=== PATIENT | male | born 1960 | race Caucasian/White ===

== ENCOUNTER 2018-06-02 08:29 | Emergency (ER) | payer OTHER ==
[2018-06-02 08:42] VITALS: RESP 18; TEMP 97.7
--- NOTE | 2018-06-02 09:03 | ED PDOC ---
Arrival/HPI - General Chief Complaint: Male Genitourinary Time Seen by Provider: 06/02/18 08:47 Historian: Patient - History of Present Illness Narrative History of Present Illness (Text): 06/02/18 09:10 57 year old male, with no significant past medical history, presents to the emergency department with burning sensation while urinating, since 2 days. Patient is hypertensive, but has no PMD, and was not previously diagnosed. Patient states he feels his bladder is not emptying completely during urination. Patient denies any fever chills, headache, dizziness, chest pain, shortness of breath, cough, abdominal pain, nausea, vomiting, diarrhea, back pain, neck pain, hematuria, or any other complaint. Time/Duration: < week (2 days) Symptom Onset: Gradual Symptom Course: Unchanged Quality: Burning Activities at Onset: Light Context: Home Past Medical History - Provider Review Nursing Documentation Reviewed: Yes - Psychiatric Hx Substance Use: No - Anesthesia Hx Anesthesia: No Hx Anesthesia Reactions: No Hx Malignant Hyperthermia: No Family/Social History - Physician Review Nursing Documentation Reviewed: Yes Family/Social History: No Known Family HX Smoking Status: Never Smoked Hx Alcohol Use: No Hx Substance Use: No Allergies/Home Meds Allergies/Adverse Reactions: Allergies No Known Allergies Allergy (Verified 06/02/18 08:39) Review of Systems - Physician Review All systems were reviewed & negative as marked: Yes - Review of Systems Constitutional: Normal. absent: Fevers, Night Sweats Eyes: Normal ENT: Normal Respiratory: Normal. absent: SOB, Cough Cardiovascular: Normal. absent: Chest Pain Gastrointestinal: Normal. absent: Abdominal Pain, Diarrhea, Nausea, Vomiting Genitourinary Male: Dysuria, Urinary Output Changes (feels bladder is not completely emptying). absent: Hematuria Musculoskeletal: Normal. absent: Back Pain, Neck Pain Skin: Normal Neurological: Normal. absent: Headache, Dizziness Endocrine: Normal Hemo/Lymphatic: Normal Psychiatric: Normal Physical Exam - Physical Exam Narrative Physical Exam (Text): 06/02/18 09:03 Gen: VS reviewed, alert, well developed, well nourished, nontoxic, mild distress. ENT: normal pharynx. Eye: EOMI, PERRL. Neck: no JVD, supple, no adenopathy. CV: regular rate, regular rhythm, no rubs, no murmur, no gallops, S1, S2, pulses equal and strong. Pulm: no distress, clear to auscultation, no wheeze, no rhonchi, breath sounds equal, no rales. Abd: soft, nontender, no guarding, no rebound, no rigidity, normal bowel sounds. Ext: no edema. Skin: good color, no rash, no cyanosis. Psych: responds appropriately to questions, normal affect. Neuro: oriented x 3, CN2-12 intact grossly, motor intact, sensation intact. Vital Signs Reviewed: Yes Vital Signs Temp Pulse Resp BP Pulse Ox 06/02/18 08:39 97.7 F 67 18 170/103 H 98 Temperature: Afebrile Blood Pressure: Hypertensive Pulse: Regular Respiratory Rate: Normal Appearance: Positive for: Well-Appearing, Non-Toxic, Comfortable Pain Distress: None Mental Status: Positive for: Alert and Oriented X 3 Medical Decision Making ED Course and Treatment: 06/02/18 09:15 Impression: 57 year old male presents to the emergency department for burning sensation while urinating. Plan: -- Labs -- Urinalysis -- Reassess and disposition Prior Visits: Notes and results from previous visits were reviewed. Progress Notes: 06/02/18 10:38 patient seen for urinary hesitancy, presumed enlarged prostate. patient was found to be severely hypertensive without headache or chest pain. patient informed and agreeable to empirically start medication to improve urine flow and to follow up with urologist. patient also agreeable to start antihypertensive medication and to see a primary care doctor for follow up. patient is aware of pending urine culture. - Lab Interpretations Lab Results: 06/02/18 09:35 06/02/18 09:35 Lab Results 06/02/18 09:35: Sodium 140, Potassium 5.0, Chloride 103, Carbon Dioxide 30, Anion Gap 13, BUN 17, Creatinine 0.9, Est GFR ( Amer) > 60, Est GFR (Non- Af Amer) > 60, Random Glucose 113 H, Calcium 9.3 06/02/18 09:35: WBC 6.1, RBC 4.98, Hgb 15.3, Hct 42.9, MCV 86.1, MCH 30.7, MCHC 35.7, RDW 13.2, Plt Count 188, MPV 10.1, Gran % 56.4, Lymph % (Auto) 29.0, [place] % (Auto) 8.7 H, Eos % (Auto) 5.4 H, Baso % (Auto) 0.5, Gran # 3.44, Lymph # ( Auto) 1.8, [place] # (Auto) 0.5, Eos # (Auto) 0.3, Baso # (Auto) 0.03 06/02/18 09:00: Urine Color Light yellow, Urine Appearance Clear, Urine pH 6.5, Ur Specific [place] <= 1.005, Urine Protein Negative, Urine Glucose (UA) Negative, Urine Ketones Negative, Urine Blood Small H, Urine Nitrate Negative, Urine Bilirubin Negative, Urine Urobilinogen 0.2, Ur Leukocyte Esterase Negative , Urine RBC 0 - 2, Urine WBC 1 - 3, Ur Epithelial Cells 1 - 3, Urine Bacteria Few - Scribe Statement The provider has reviewed the documentation as recorded by the Scribe Clint Dow All medical record entries made by the Scribe were at my direction and personally dictated by me. I have reviewed the chart and agree that the record accurately reflects my personal performance of the history, physical exam, medical decision making, and the department course for this patient. I have also personally directed, reviewed, and agree with the discharge instructions and disposition. Disposition/Present on Arrival - Present on Arrival Any Indicators Present on Arrival: No History of DVT/PE: No History of Uncontrolled Diabetes: No Urinary Catheter: No History of Decub. Ulcer: No History Surgical Site Infection Following: None - Disposition Have Diagnosis and Disposition been Completed?: Yes Diagnosis: Urinary hesitancy, Hypertension Disposition: HOME/ ROUTINE Disposition Time: 10:40 Patient Plan: Discharge Condition: STABLE Discharge Instructions (ExitCare): High Blood Pressure in Adults, Urinary Retention Print Language: SOMALI Additional Instructions: Follow up with a primary care doctor for further management of your high blood pressure. Follow up with a urologist for follow up with difficulty urinating-you may have an enlarged prostate and you should see a specialist as soon as possible. ARABELLA WANG, thank you for letting us take care of you today. Your provider was Dr. Dmitriy Ramirez and you were treated for urinary hesitancy and high blood pressure. The emergency medical care you received today was directed at your acute symptoms. If you were prescribed any medication, please fill it and take as directed. It may take several days for your symptoms to resolve. Return to the Emergency Department if your symptoms worsen, do not improve, or if you have any other problems. Please contact your doctor or call one of the physicians/clinics you have been referred to that are listed on the Patient Visit Information form that is included in your discharge packet. Bring any paperwork you were given at discharge with you along with any medications you are taking to your follow up visit. Our treatment cannot replace ongoing medical care by a primary care provider outside of the emergency department. Thank you for allowing the [facility] team to be part of your care today. If you had an X-Ray or CT scan: A Radiologist will review the ED reading if any change in treatment is needed we will contact you. If you had a blood, urine, or wound culture: It will take several days for the results, if any change in treatment is needed we will contact you. If you had an STI test: It will take 48 hours for the results. Please call after 1 week if you have not heard back. Prescriptions: Lisinopril [Prinivil] 10 mg PO DAILY #30 tablet Tamsulosin HCl [Flomax] 0.4 mg PO DAILY 30 Days #30 cap.er.24h Referrals: [facility] [Outside] - Follow up with primary Jackie Bryant MD [Medical Doctor] - Follow up with primary Forms: [employer] (Ukrainian)
[2018-06-02 09:37] LABS: PH,URINE 6.5 (4.7-8.0); URINE BILIRUBIN NEGATIVE (NEGATIVE); URINE BLOOD SMALL (NEGATIVE); URINE GLUCOSE (UA) NEGATIVE (NEGATIVE); URINE LEUKOCYTE ESTERASE NEGATIVE Leu/uL (NEGATIVE); URINE PROTEIN NEGATIVE mg/dL (<30 mg/dL); URINE UROBILINOGEN 0.2 E.U./dL (<1 E.U./dL)
[2018-06-02 09:39] LABS: BASO # 0.03 K/mm3 (0.0-2.0); BASO % 0.5 % (0.0-3.0); EOS # 0.3 (0.0-0.7); EOS % 5.4 % (1.5-5.0); GRAN # 3.44 (1.4-6.5); GRAN % 56.4 % (50.0-68.0); HEMOGLOBIN 15.3 g/dL (14.0-18.0); LYMPH # 1.8 (1.2-3.4); MEAN CELL VOLUME 86.1 fl (80.0-105.0); MEAN CORPUSCULAR HEMOGLOBIN 30.7 pg (25.0-35.0); MEAN CORPUSCULAR HGB CONC 35.7 g/dl (31.0-37.0); MEAN PLATELET VOLUME 10.1 fl (7.0-11.0); MONO # 0.5 (0.1-0.6); MONO % 8.7 % (1.0-6.0); RBC 4.98 10^6/uL (3.5-6.1); RED CELL DISTRIBUTION WIDTH 13.2 % (11.5-14.5); WHITE BLOOD COUNT 6.1 10^3/ul (4.5-11.0)
[2018-06-02 09:48] LABS: CALCIUM 9.3 mg/dL (8.4-10.5); GFR AFRICAN-AMERICAN > 60; GFR NON-AFRICAN AMERICAN > 60
[2018-06-02 09:50] LABS: BLOOD UREA NITROGEN 17 mg/dL (7-21)
[2018-06-02 09:53] LABS: URINE APPEARANCE CLEAR (CLEAR)
[2018-06-02 09:54] LABS: URINE COLOR LIGHT YELLOW (YELLOW)
[2018-06-02 10:10] LABS: URINE BACTERIA FEW (NEG); URINE RBC 0 - 2 /hpf (0-2)
[2018-06-02 10:49] VITALS: BP 161/90; PULSE 62; O2SAT 97
== END 2018-06-02 10:52 | disposition home or self-care (01) ==
LOC: ED 08:29
DX: R39.11 Hesitancy of micturition (principal); I10 Essential (primary) hypertension

== ENCOUNTER 2018-11-27 19:05 | Emergency (ER) | payer OTHER ==
[2018-11-27 19:22] VITALS: RESP 18
--- NOTE | 2018-11-27 20:01 | ED PDOC ---
Arrival/HPI - General Chief Complaint: Flu-like Symptoms Time Seen by Provider: 11/27/18 19:08 - History of Present Illness Narrative History of Present Illness (Text): 11/27/18 19:56 58M w/ h/o hypertension presenting to the Emergency Room with sore throat and generalized myalgias ongoing for the last 24 hours. The patient states he started feeling odynophagia, generalized muscle pain, and dry non-productive cough. He reports attempting to self-medicate with Tylenol and cough medicine this morning, both of which did not help in alleviating his symptoms. He denies any recent travels, sick contacts, fevers, chills, nausea, emesis, chest pain, shortness of breath, weakness or syncopal episodes. PCP: Dr. Loo Time/Duration: 24 hours Symptom Onset: Gradual Symptom Course: Unchanged Activities at Onset: Significant Context: Home Past Medical History - Provider Review Nursing Documentation Reviewed: Yes - Travel History Have you recently traveled outside [place] w/in the past 3 mons?: No - Cardiac Hx Hypertension: Yes - Genitourinary/Gynecological Hx Urinary Tract Infection: Yes - Psychiatric Hx Substance Use: No - Anesthesia Hx Anesthesia: No Hx Anesthesia Reactions: No Hx Malignant Hyperthermia: No Family/Social History - Physician Review Nursing Documentation Reviewed: Yes Family/Social History: Unknown Family HX Smoking Status: Never Smoked Hx Alcohol Use: No Hx Substance Use: No Allergies/Home Meds Allergies/Adverse Reactions: Allergies No Known Allergies Allergy (Verified 11/27/18 19:17) Review of Systems - Physician Review All systems were reviewed & negative as marked: Yes - Review of Systems Respiratory: Cough. absent: SOB, Sputum, Wheezing Cardiovascular: absent: Chest Pain, Palpitations, Edema, Syncope Physical Exam Vital Signs Reviewed: Yes Vital Signs Temp Pulse Resp BP Pulse Ox 11/27/18 19:33 97.6 F 94 H 18 137/97 H 98 11/27/18 19:20 98.8 F 103 H 18 134/96 H 97 Temperature: Afebrile Blood Pressure: Hypertensive Pulse: Tachycardic Respiratory Rate: Normal Appearance: Positive for: Well-Appearing, Non-Toxic Mental Status: Positive for: Alert and Oriented X 3 - Systems Exam Head: Present: Atraumatic, Normocephalic Pupils: Present: PERRL Extroacular Muscles: Present: EOMI Conjunctiva: Present: Normal Mouth: Present: Moist Mucous Membranes Pharnyx: Present: ERYTHEMA. No: EXUDATE, TONSILS ENLARGED, Muffled/Hoarse Voice, Soft Palate/Uvular Edema Neck: Present: Normal Range of Motion Respiratory/Chest: Present: Clear to Auscultation, Good Air Exchange, Respiratory Distress Cardiovascular: Present: Regular Rate and Rhythm, Normal S1, S2. No: Murmurs Abdomen: Present: Normal Bowel Sounds. No: Tenderness, Distention, Peritoneal Signs Upper Extremity: Present: Normal Inspection. No: Cyanosis, Edema Lower Extremity: Present: Normal Inspection. No: Edema Neurological: Present: GCS=15, Speech Normal Skin: Present: Warm, Dry, Normal Color. No: Rashes Psychiatric: Present: Alert, Oriented x 3, Normal Insight, Normal Concentration Medical Decision Making ED Course and Treatment: 11/27/18 20:04 Impression 58M w/ h/o Hypertension presented to the Emergency Room for cough and generalized myalgias Differential Diagnosis Includes But Is Not Limited To: --Bronchitis --Influenza --PNA Plan --Labs --IVF --Rapid Flu --Rapid Strep --CXR --Magic Mouth Wash --Reassess & disposition Progress Notes - RAD Interpretation Radiology Orders: 11/27/18 19:46 CHEST PORTABLE [RAD] Stat Disposition/Present on Arrival - Present on Arrival Any Indicators Present on Arrival: No History of DVT/PE: No History of Uncontrolled Diabetes: No Urinary Catheter: No History of Decub. Ulcer: No History Surgical Site Infection Following: None - Disposition Have Diagnosis and Disposition been Completed?: No Diagnosis: Viral pharyngitis, Bronchitis Disposition: HOME/ ROUTINE Disposition Time: 21:01 Patient Plan: Discharge Condition: GOOD Discharge Instructions (ExitCare): Acute Bronchitis, Adult (DC), Viral Pharyngitis (DC) Print Language: INDIAN Additional Instructions: Please follow up with your PCP in 1 week . Prescriptions: Azithromycin [Z-Timothy] 250 mg PO DAILY #6 tab Methylprednisolone [Medrol Dose Pack (21 tabs)] 4 mg PO DAILY #21 mg Referrals: Eze Johnson MD [Primary Care Provider] - Follow up with primary Forms: [employer] (Dominican)
[2018-11-27] MEDS ORDERED: Sodium Chloride 0.9% 1,000 ML IV STA (20:07)
[2018-11-27] MEDS ORDERED: MAGNESIUM PO ONE (20:08)
[2018-11-27] MEDS ORDERED: ALUMINUM HYDROXIDE PO ONE (20:08)
[2018-11-27] MEDS ORDERED: LIDOCAINE 2% PO ONE (20:08)
[2018-11-27] MEDS ORDERED: VISCOUS PO ONE (20:08)
[2018-11-27] MEDS ORDERED: DIPHENHYDRAMINE PO ONE (20:08)
[2018-11-27] MEDS ORDERED: Alum-Mag Hydrox-Simethicone Susp (30 mL) ONE (20:19)
[2018-11-27 20:20] LABS: BASO # 0.02 K/mm3 (0.0-2.0); BASO % 0.3 % (0.0-3.0); EOS # 0.2 (0.0-0.7); EOS % 2.4 % (1.5-5.0); HEMOGLOBIN 16.2 g/dL (14.0-18.0); LYMPH # 1.2 (1.2-3.4); LYMPH % 20.2 % (22.0-35.0); MEAN CELL VOLUME 87.9 fl (80.0-105.0); MEAN CORPUSCULAR HEMOGLOBIN 30.6 pg (25.0-35.0); MEAN CORPUSCULAR HGB CONC 34.8 g/dl (31.0-37.0); MEAN PLATELET VOLUME 10.1 fl (7.0-11.0); MONO # 0.4 (0.1-0.6); MONO % 7.2 % (1.0-6.0); RBC 5.3 10^6/uL (3.5-6.1); RED CELL DISTRIBUTION WIDTH 13.2 % (11.5-14.5); WHITE BLOOD COUNT 6.1 10^3/uL (4.5-11.0)
[2018-11-27 20:28] LABS: ALB/GLOB RATIO 1.2 (1.1-1.8); ALBUMIN 4.4 g/dL (3.0-4.8); ALT/SGPT 31 U/L (7-56); AST/SGOT 75 U/L (17-59); BLOOD UREA NITROGEN 14 mg/dL (7-21); CALCIUM 9.3 mg/dL (8.4-10.5); GFR NON-AFRICAN AMERICAN > 60
[2018-11-27 21:14] VITALS: BP 164/86; PULSE 84; TEMP 98.1; O2SAT 100
--- NOTE | 2018-11-28 08:40 | RAD ---
Date of service: 11/27/2018 HISTORY: cough COMPARISON: 12/21/2016 FINDINGS: LUNGS: No active pulmonary disease. PLEURA: No significant pleural effusion identified, no pneumothorax apparent. CARDIOVASCULAR: Minimal aortic calcification Normal cardiac size. No pulmonary vascular congestion. OSSEOUS STRUCTURES: No significant abnormalities. VISUALIZED UPPER ABDOMEN: Normal. OTHER FINDINGS: None. IMPRESSION: No active disease.
== END 2018-11-27 21:14 | disposition home or self-care (01) ==
LOC: ED 19:05
DX: J40 Bronchitis, not specified as acute or chronic (principal); J02.9 Acute pharyngitis, unspecified; I10 Essential (primary) hypertension
CPT/HCPCS: 71045; 80053; 85025; 87070; 87430; 87804; 99283; J7030